=== PATIENT | male | born 1950 | race Caucasian/White ===

== ENCOUNTER → 2022-01-12 | Day surgery (SDC) | payer MEDICARE ==
[~2022-01-12] VITALS: Ht 167.6 cm; Wt 143.6 kg
[~2022-01-12] MED LIST: ACETAMINOPHEN/CODEINE 300-30 MG TABLET PO ONE; ALLO-45 PO; AMLO5TAB66 PO; APIX5TAB PO; ASPI-1444 PO; ASPIRIN 81 MG CHEWABLE TABLET ONE; ASPIRIN 81 MG CHEWABLE TABLET PO ONE; ATOR10TA84 PO; CHOL25TA4 PO; CYAN-35 PO; DIAZEPAM 5 MG TABLET ONE; DIAZEPAM 5 MG TABLET PO ONE; DULA0.75 SQ; DiphenhydrAMINE HCL 50 MG CAPSULE ONE; DiphenhydrAMINE HCL 50 MG CAPSULE PO ONE; FentaNYL CITRATE PF 100 MCG/2 ML VIAL IVP ONE; FentaNYL CITRATE PF 100 MCG/2 ML VIAL ONE; HEPARIN SODIUM 1000 UNITS/NS 1,000 ML IARTER ONE; HEPARIN SODIUM 1000 UNITS/NS 1,000 ML ONE; HEPARIN SODIUM,PORCINE 5,000 UNITS/ML VIAL IVP ONE; HydrALAZINE HCL 20 MG/ML VIAL IVP ONE; HydrALAZINE HCL 20 MG/ML VIAL ONE; IOHEXOL 300 MG/ML 100 ML VIAL ICOR ONE; IOHEXOL 300 MG/ML 100 ML VIAL ONE; IOHEXOL 300 MG/ML 150 ML VIAL ICOR ONE; IOHEXOL 300 MG/ML 150 ML VIAL ONE; IOHEXOL 300 MG/ML 50 ML VIAL ICOR ONE; IOHEXOL 300 MG/ML 50 ML VIAL ONE; LIDOCAINE 1% 30 ML/SOD BICARB 8.4% 4 ML SQ ONE; LIDOCAINE/PF 1% 30 ML VIAL ONE; LISI-893 PO; METF-1211 PO; METO-408 PO; MIDAZOLAM HCL 2 MG/2 ML VIAL IVP ONE; MIDAZOLAM HCL 2 MG/2 ML VIAL ONE; NITROGLYCERIN 400 MCG/SUBLINGUAL SPRAY 4.9 GM BOTTLE SL ONE; OMEG-108 PO; OMEP20 PO; RANO500T6 PO; SODIUM BICARBONATE 50 MEQ/50 ML VIAL ONE; SODIUM CHLORIDE 0.9% 1,000 ML IV ONE; SODIUM CHLORIDE 0.9% 1,000 ML ONE; TICAGRELOR 90 MG TABLET ONE; TICAGRELOR 90 MG TABLET PO ONE
[2022-01-12 06:36] LABS: GLUCOMETER DEV NAME(LOC) SDS.; GLUCOSE,POINT OF CARE 233 MG/DL (70-110)
[2022-01-12 07:26] VITALS: BP 156/91
[2022-01-12 09:21] VITALS: BP 160/75
== END | disposition home or self-care (01) ==
LOC: CATHLAB 05:29
PROVIDERS: ATTEND Internal Medicine Interventional Cardiology
DX: I25.110 Atherosclerotic heart disease of native coronary artery with unstable angina pectoris (principal); E66.01 Morbid (severe) obesity due to excess calories; I10 Essential (primary) hypertension; E78.5 Hyperlipidemia, unspecified; Z68.43 Body mass index [BMI] 50.0-59.9, adult; Z86.711 Personal history of pulmonary embolism; Z87.891 Personal history of nicotine dependence; Z95.5 Presence of coronary angioplasty implant and graft; Z98.890 Other specified postprocedural states; Z72.89 Other problems related to lifestyle; Z96.653 Presence of artificial knee joint, bilateral
CPT/HCPCS: 82962; 92978; 93005; 93454; 99152; 99153; C1753; C1757; C1760; C1874; C1887; C9600; J0360; J1644; J2250; J3010; J3490 ×2; J7030; Q9967 ×3; 75960; 92920; 92928